=== PATIENT | female | born 1965 | race American Indian/Alaskan Native ===

== ENCOUNTER 2017-02-21 13:55 | Outpatient (CLI) | payer OTHER ==
--- NOTE | 2017-02-21 15:36 | Mammography Report ---
Screening mammogram: Routine views compared to prior examinations in 2012 and 2014. There is mostly fatty replacement in both breasts. There is a stable circumscribed nodule in the posterior right breast. In the superior-lateral left breast there is a partially circumscribed asymmetry seen in both projections although not definitely the same finding. This is not apparent on prior studies. No other interval changes are suspected. CAD used. Impression: Left breast asymmetry. Recommendation: Spot compression views of the left breast and ultrasound if needed. BI-RADS CATEGORY: 0 = Needs additional imaging evaluation ACR BI-RADS MAMMOGRAPHIC CODES: 0 = Needs additional imaging evaluation; 1 = Negative; 2 = Benign; 3 = Probably benign; 4 = Suspicious; 5 = Malignant; 6 = Known biopsy-proven malignancy COMMENT: 1. Dense breast tissue, i.e., adenosis, fibrocystic changes, etc., may obscure an underlying neoplasm. 2. Approximately 10% of cancers are not detected with mammography. 3. A negative mammography report should not delay biopsy if a clinically suspicious mass is present.
== END 2017-02-21 13:56 | disposition home or self-care (01) ==
LOC: SPVWC 13:55
PROVIDERS: ATTEND Internal Medicine
DX: Z12.31 Encounter for screening mammogram for malignant neoplasm of breast (principal)
CPT/HCPCS: 77067; G0202

== ENCOUNTER 2017-05-16 09:31 | Outpatient (CLI) | payer OTHER ==
--- NOTE | 2017-05-16 10:46 | Mammography Report ---
LEFT DIGITAL DIAGNOSTIC MAMMOGRAM : 05/16/17 09:31:00 CLINICAL: Recalled for asymmetries. COMPARISON:02/21/17 screening FINDINGS: Exaggerated CC and spot compression MLO and CC views were performed and are negative. A subcentimeter benign intramammary lymph node is identified on both views.The previously described asymmetry on the MLO view demonstrates satisfactory effacement. IMPRESSION: Negative Mammogram. BI-RADS CATEGORY: 1 -- Negative RECOMMENDATION: Routine mammographic screening in one year. ACR BI-RADS MAMMOGRAPHIC CODES: 0 = Needs additional imaging evaluation; 1 = Negative; 2 = Benign; 3 = Probably benign; 4 = Suspicious; 5 = Malignant; 6 = Known biopsy-proven malignancy COMMENT: 1. Dense breast tissue, i.e., adenosis, fibrocystic changes, etc., may obscure an underlying neoplasm. 2. Approximately 10% of cancers are not detected with mammography. 3. A negative mammography report should not delay biopsy if a clinically suspicious mass is present. COMMENT: Patient follow-up letters are generated via our [employer] application.
== END 2017-05-16 09:32 | disposition home or self-care (01) ==
LOC: SPVWC 09:31
PROVIDERS: ATTEND Internal Medicine
DX: N64.89 Other specified disorders of breast (principal)

== ENCOUNTER 2018-06-15 13:24 | Outpatient (CLI) | payer OTHER ==
--- NOTE | 2018-06-16 08:59 | Mammography Report ---
BILATERAL DIGITAL SCREENING MAMMOGRAM: 06/15/18 13:24:00 CLINICAL: Routine screening. COMPARISON:02/21/17 FINDINGS: The breasts are almost entirely fatty. No mass, architectural distortion or suspicious calcifications. IMPRESSION: No mammographic evidence of malignancy. BI-RADS CATEGORY: 1 - - Negative RECOMMENDATION: Routine mammographic screening in one year. COMMENT: Patient follow-up letters are generated by our [employer] application.
== END 2018-06-15 13:25 | disposition home or self-care (01) ==
LOC: SPVWC 13:24
PROVIDERS: ATTEND Internal Medicine
DX: Z12.31 Encounter for screening mammogram for malignant neoplasm of breast (principal)
CPT/HCPCS: 77067

== ENCOUNTER 2021-06-29 11:33 | Outpatient (CLI) | payer BC ==
--- NOTE | 2021-06-30 10:08 | Mammography Report ---
DIGITAL SCREENING MAMMOGRAM WITH CAD, 06/29/2021 CLINICAL INFORMATION / INDICATION: Routine screening TECHNIQUE: Digital bilateral 2D mammography was obtained in the craniocaudal and mediolateral obliqu e projections. This examination was interpreted with the benefit of Computer-Aided Detection analysis . COMPARISON: 06/15/2018, 02/21/2017 FINDINGS: Breast Density: The breasts are almost entirely fatty. No dominant mass, suspicious calcifications, or architectural distortion in either breast. Minimal nodularity is unchanged. IMPRESSION: No mammographic evidence of malignancy. Follow up recommendation: Routine yearly BI-RADS Category 2: BENIGN. A "normal" or negative report should not discourage follow up or biopsy of a clinically significant f inding. A written summary of these findings will be mailed to the patient. The patient will be entered into a mammography reporting system which will generate a reminder letter for the patient's next appointmen t at the appropriate interval. The [employer] recommends yearly mammograms starting at age 40 and continuing as l ignacio as a woman is in good health. Breast MRI is recommended for women with an approximate 20-25% or greater lifetime risk of breast cancer, including women with a strong family history of breast or ova lizz cancer or who have been treated for Hodgkin's disease. Signer Name: Kapil Rios MD Signed: 06/30/2021 10:04 AM Workstation Name: [id number]
== END 2021-06-29 11:34 | disposition home or self-care (01) ==
LOC: MAMMO 11:33
PROVIDERS: ATTEND Internal Medicine
DX: Z12.31 Encounter for screening mammogram for malignant neoplasm of breast (principal); N64.89 Other specified disorders of breast
CPT/HCPCS: 77067